=== PATIENT | male | born 1995 | race Caucasian/White ===

== ENCOUNTER 2021-08-02 16:26 | Emergency (ER) | payer SELFPAY ==
[2021-08-02] MEDS ORDERED: CEPHALEXIN500 M1 PO (17:33)
[2021-08-02] MEDS ORDERED: BACTROBAN OINT22 GM EXT (17:33)
== END 2021-08-02 17:45 | disposition home or self-care (01) ==
LOC: ER1 16:26
DX: S80.862A Insect bite (nonvenomous), left lower leg, initial encounter (principal); S80.861A Insect bite (nonvenomous), right lower leg, initial encounter; L03.116 Cellulitis of left lower limb; L03.115 Cellulitis of right lower limb; F17.200 Nicotine dependence, unspecified, uncomplicated; W57.XXXA Bitten or stung by nonvenomous insect and other nonvenomous arthropods, initial encounter
CPT/HCPCS: 99282